=== PATIENT | female | born 1940 | race Caucasian/White ===

== ENCOUNTER → 2020-06-17 | Outpatient (CLI) | payer MEDICARE, OTHER ==
[~2020-06-17] MED LIST: CELE200C PO; COLE1TAB PO; ERGO500017 PO; ESTR0.5T PO; FLUT9.9S NS; LEVO50TA5 PO; POTA99TA3 PO; TIZA4TAB2 PO; VENL225T PO; calcium PO; folic acid PO; magnesium PO; progesterone PO
[2020-06-17 12:26] LABS: INTERNATIONAL NORMALIZED RATIO 0.96 (0.93-1.1); PROTHROMBIN TIME 9.9 Seconds (9.6-11.5)
== END | disposition home or self-care (01) ==
LOC: STAR 11:12
PROVIDERS: ATTEND Neurological Surgery
DX: Z01.818 Encounter for other preprocedural examination (principal); M50.30 Other cervical disc degeneration, unspecified cervical region; J98.4 Other disorders of lung
CPT/HCPCS: 36415; 71046; 85610; 85730; 93005